=== PATIENT | female | born 2000 | race Caucasian/White ===

== ENCOUNTER → 2022-01-18 | Outpatient (CLI) | payer BC, SELFPAY | END | disposition home or self-care (01) | LOC: LABSPEC 11:06 | PROVIDERS: Visit Provider Obstetrics & Gynecology | DX: Z36.85 Encounter for antenatal screening for Streptococcus B (principal) | CPT/HCPCS: 87081 ==

== ENCOUNTER 2022-02-15 14:55 | Inpatient (IN) | payer BC, SELFPAY ==
[2022-02-15] VITALS (15 sets, daily range): BP systolic 121–217; BP diastolic 58–108; PULSE 85–113; TEMP 36.5–37.3; O2SAT 93–94; BMI 50.2
[2022-02-15] MEDS: Lactated Ringers 1,000 ML 50 ML IV ×2 (15:30→22:14)
[2022-02-15 15:49] LABS: Absolute Neutrophil Count 7.1 X10^3/uL (2.0-7.7); Basophil# 0.02 X10^3/uL; Basophil% 0.2 % (0-1); Eosinophil# 0.03 X10^3/uL; Eosinophils% 0.3 % (0-5); Lymphocyte % 23.5 % (19-41); Mean Corp Hgb Conc 34.2 g/dL (32-36); Mean Corpuscular Hgb 29.8 pg (27.0-32.0); Mean Corpuscular Volume 87.2 fL (81-99); Mean Platelet Vol. 10.3 fl (6.2-12.0); Monocyte# 0.59 X10^3/uL; Monocyte% 5.8 % (0-10); NRBC Flagged by Analyzer 0 % (0-5); Neutrophil # 7.11 X10^3/uL (2.7-7.7); Neutrophil % 69.7 % (47-70); Platelet Count 277 K/mm3 (150-450); RBC Distribution Width CV 14.3 % (11.6-14.6); RBC Distribution Width SD 45.7 fl (35.1-43.9); Red Blood Count 4.36 M/mm3 (4.2-5.4); White Blood Count 10.2 K/mm3 (4.4-11.0)
[2022-02-15 16:06] LABS: ALB/GLOB Ratio 0.6 RATIO (0.9-2.4); AST(SGOT) 17 U/L (15-37); Alanine Aminotransfer ALT/SGPT 25 U/L (13-56); Albumin, Serum 2.5 g/dL (3.2-5.0); Alkaline Phosphatase 173 U/L (45-117); Anion Gap 8 (5-15); BUN 8 mg/dL (7-18); BUN/Creat Ratio 11.2 RATIO (10-20); Calcium,Total 8.9 mg/dL (8.5-10.1); Chloride 110 mmol/L (98-107); Creatinine, Serum 0.72 mg/dL (0.55-1.02); EST Glomerular Filtration Rate 107 mL/min (>60); Est Glom Filt Rate - Afr Amer 129 mL/min (>60); Estimated Creatinine Clearance 131.41 ml/min; Globulin 4.5 g/dL (2.2-4.2); Glucose 123 mg/dL (74-106); Potassium 3.9 mmol/L (3.5-5.1); Sodium Level 137 mmol/L (136-145)
[2022-02-15] MEDS: LACTATED RINGERS 500 ML 999 ML IV ×2 (16:09→17:03)
[2022-02-15 16:42] LABS: Protein, Urine (Random) 10.5 mg/dL (<11.9); Protein:Creat Ratio 305 mg/g CRE (0-200)
[2022-02-15 17:20] LABS: LDH 202 U/L (84-246)
[2022-02-15] MEDS: Oxytocin 30 units/NS 500 ml 30 UNITS/500 ML IV.SOLN IV (17:48)
--- NOTE | 2022-02-15 18:00 | PCM.HP.BLA ---
History and Physical Date of Admission: 02/15/22 21-year-old at 40/6 weeks, JESSE 02/09/2022 by LMP, admitted for induction of labor. Denies headache, vision changes, chest pain or shortness of breath, nausea or vomiting, diarrhea constipation, fevers or chills. Denies regular contractions, leaking of fluid, vaginal bleeding. Reports movement. complicated by: Class III obesity, gestational hypertension. Growth on 01/11: 2835 g, 55th percentile EFW.. 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 Class III obesity Surgical history: 1. [place] teeth extraction Allergies: No known drug allergies Family history: Noncontributory Social history: Denies tobacco, alcohol, drug use Medications: vitamin Review of system: Negative otherwise stated above Physical exam: BP 127/75, pulse Heart rate 96, temperature 98.3 ?F, pulse ox 94% on room air General: Patient sitting at bedside in no acute distress HEENT: Normocephalic/atraumatic, PERRLA Cardiac: Regular rate and rhythm Lungs: Clear to auscultation bilaterally Abdomen: Soft, nontender, gravid, obese Extremities: Minimal edema Neurologic: Cranial nerves II through XII grossly intact, patellar reflex 2/4 bilaterally Musculoskeletal: Strength 5 out of 5 throughout all extremities Cervical exam: 3 cm/60/-3 heart rate: 150/moderate variability/+accel/no decel [place]: quiet panel O+ GBS negative on 01/18 HIV negative Hepatitis B/C negative Syphilis nonreactive Gonorrhea/chlamydia negative Labs today: CBC, CMP, LDH within normal limits. Mildly elevated urine protein creatinine ratio of 305 Assessment & Plan Assessment/Plan (1) Pre-eclampsia: PLAN: 21-year-old at 40/6 weeks, admitted for induction of labor for preeclampsia. Patient diagnosed with gestational hypertension in the office, protein creatinine ratio elevated. Blood pressures have been within normal limits here at this time. Patient asymptomatic and physical exam within normal limits. Complicated by class III obesity. ?Admit for induction of labor with Pitocin ?Routine orders (2) Encounter for induction of labor:
[2022-02-16] VITALS (57 sets, daily range): BP systolic 118–173; BP diastolic 55–99; PULSE 71–245; TEMP 36.4–37.4; O2SAT 82–99
[2022-02-16] MEDS: Ondansetron 4 MG/2 ML Vial IV ×5 (03:06→22:44)
[2022-02-16] MEDS: fentaNYL 100 MCG/2 ML Ampul IV ×4 (03:16→12:29)
--- NOTE | 2022-02-16 04:12 | PN.OBGYN_ITS ---
Subjective Subjective Patient up at bedside. Getting more uncomfortable with contractions. Objective Data Objective Data Vital Signs: Vital Signs Temp Pulse BP Pulse Ox 98.0 F 98 150/86 H 93 02/16/22 03:09 02/16/22 03:10 02/16/22 03:10 02/15/22 18:53 Weight: 158.757 kg Body Mass Index (BMI) 50.2 Intake & Output: Intake and Output for Last 24 Hours 02/14/22 02/15/22 02/16/22 23:59 23:59 23:59 Intake Total 1370.17 / 1370.17 52.14 / 52.14 Output Total 200 / 200 Balance 1170.17 / 1170.17 52.14 / 52.14 Lab / Micro Data Attestation: I reviewed the patient's lab results. Result Diagrams: 02/15/22 15:30 02/15/22 15:30 Labs: Laboratory Results - last 24 hr 02/15/22 15:30: WBC 10.2, RBC 4.36, Hgb 13.0, Hct 38.0, MCV 87.2, MCH 29.8, MCHC 34.2, RDW Std Deviation 45.7 H, RDW Coeff of Jamel 14.3, Plt Count 277, MPV 10.3, Immature Gran % (Auto) 0.500, Neut % (Auto) 69.7, Lymph % (Auto) 23.5, [place] % (Auto) 5.8, Eos % (Auto) 0.3, Baso % (Auto) 0.2, Absolute Neuts (auto) 7.1, Absolute Lymphs (auto) 2.40, Nucleated RBC % 0 02/15/22 15:30: Blood Type O POSITIVE, Antibody Screen NEGATIVE 02/15/22 15:30: Sodium 137, Potassium 3.9, Chloride 110 H, Carbon Dioxide 19.0 L , Anion Gap 8, BUN 8, Creatinine 0.72, Estim Creat Clear Calc 131.41, Est GFR (MDRD) Af Amer 129, Est GFR (MDRD) Non-Af 107, BUN/Creatinine Ratio 11.2, Glucose 123 H, Calcium 8.9, Total Bilirubin 0.30, AST 17, ALT 25, Alkaline Phosphatase 173 H, Total Protein 7.0, Albumin 2.5 L, Globulin 4.5 H, Albumin/Globulin Ratio 0.6 L 02/15/22 15:30: Lactate Dehydrogenase 202 02/15/22 15:55: U Random Total Protein 10.5, Urine Creatinine 34.40, Protein/Creatinin Ratio 305 H Micro: Microbiology 02/15/22 15:35 Nasal Secretion SARS-CoV-2 Antigen (Rapid) - Final Physical Exam Const alert and oriented x3 Resp normal respiratory effort GI Inspection: gravid Extremity no pedal edema NST FHR Rate Baby A Baseline: 145 Variability:: Moderate Accelerations:: 15 x 15 Decelerations:: None FHR Category:: Category I Assessment & Plan (1) Pre-eclampsia: PLAN: 41/0w. Continued induction of labor for preeclampsia without severe features. Blood pressures controlled. Continue induction of labor. Spontaneous rupture of membranes. Will consider Pitocin break later this morning if needed. (2) Encounter for induction of labor:
[2022-02-16] MEDS: Lactated Ringers 1,000 ML 200 ML IV ×2 (13:11→19:12)
--- NOTE | 2022-02-16 16:27 | PCM.PN.OB ---
Subjective Subjective Patient seen and examined. Breathing through contractions. Objective Data Objective Data Vital Signs: Vital Signs Temp Pulse BP Pulse Ox 98.7 F 90 144/82 H 96 02/16/22 14:53 02/16/22 16:26 02/16/22 16:26 02/16/22 16:26 Weight: 158.757 kg Body Mass Index (BMI) 50.2 Intake & Output: Intake and Output for Last 24 Hours 02/14/22 02/15/22 02/16/22 23:59 23:59 23:59 Intake Total 1370.17 / 1370.17 1564.97 / 1564.97 Output Total 200 / 200 200 / 200 Balance 1170.17 / 1170.17 1364.97 / 1364.97 Lab / Micro Data Result Diagrams: 02/15/22 15:30 02/15/22 15:30 Labs: Laboratory Results - last 24 hr 02/15/22 15:30: Blood Type O POSITIVE, Antibody Screen NEGATIVE 02/15/22 15:30: Lactate Dehydrogenase 202 02/15/22 15:55: U Random Total Protein 10.5, Urine Creatinine 34.40, Protein/Creatinin Ratio 305 H Micro: Microbiology 02/15/22 15:35 Nasal Secretion SARS-CoV-2 Antigen (Rapid) - Final Physical Exam Const alert and oriented x3 Resp normal respiratory effort GI Inspection: gravid Narrative: 6/80/+1 Extremity Extremity Narrative: minimal pedal edema NST FHR Rate Baby A Baseline: 140 Variability:: Moderate Accelerations:: 15 x 15 Decelerations:: None FHR Category:: Category I Assessment & Plan (1) Encounter for induction of labor: PLAN: Patient 6 cm dilated. Ruptured since approximately 0300. status reassuring, category 1 tracing. Patient exhausted from contractions. Discussed further supportive care for pain management. Patient would like epidural at this time. May need IUPC to enable further titration of contractions. Discussed with patient and patient showed device. Continue induction of labor with Pitocin. All questions answered. (2) Pre-eclampsia:
[2022-02-16] MEDS: LACTATED RINGERS 500 ML 999 ML IV (16:44)
[2022-02-16] MEDS: fentaNYL-bupivacaine (epidural) 100 ML BAG EPIDURAL ×2 (18:21→22:52)
[2022-02-16] MEDS: 0.9% Saline Lock 10 ML Syringe IV (22:44)
[2022-02-16] MEDS: Oxytocin 30 units/NS 500 ml 30 UNITS/500 ML IV.SOLN 334 UNITS IV (23:53)
[2022-02-17] VITALS (37 sets, daily range): BP systolic 104–182; BP diastolic 48–125; PULSE 94–154; RESP 16–22; TEMP 36.3–36.9; O2SAT 96–100
--- NOTE | 2022-02-17 00:10 | EX.PCM.OBRPT ---
Maternal Data Information Final JESSE: 02/09/22 Final JESSE Source: LMP Vaginal Delivery Operative Information Date of Procedure: 02/16/22 Pre-Operative Diagnosis: Caceres intrauterine , preeclampsia with severe features, meconium fluid Post-Operative Diagnosis: Caceres intrauterine , preeclampsia with severe features, meconium fluid Surgery / Procedure Performed: Spontaneous Vaginal Delivery Type of Anesthesia: Epidural Estimated Blood Loss: 600cc Findings Description of Procedure: Spontaneous vaginal delivery of a viable infant female. Nuchal cord x1, loose, reduced. Baby to mom. Cord clamped and cut. Baby to warmer for suctioning and stimulation with a waiting nursery staff. Second-degree laceration repaired in usual fashion, hemostatic. Cord avulsion from placenta. Manual extraction of placenta. Removal of membranes with ring forceps. Bimanual exam completed with removal of blood clot and any remaining tissue. Bedside ultrasound completed; noting thin endometrial lining, no blood flow. All placental tissue removed based on exam and ultrasound findings. Baby on mom's chest. Train Control Electronic Technician and respiratory present for meconium fluid. A Gender: Female (1 minute): 7 (5 minute): 8
[2022-02-17] MEDS: LACTATED RINGERS 500 ML 999 ML IV (00:20)
[2022-02-17 05:10] LABS: Hematocrit 32.1 % (37-47); Mean Corp Hgb Conc 34.3 g/dL (32-36); Mean Corpuscular Hgb 29.8 pg (27.0-32.0); Platelet Count 290 K/mm3 (150-450); RBC Distribution Width CV 14.3 % (11.6-14.6); RBC Distribution Width SD 45.1 fl (35.1-43.9); Red Blood Count 3.69 M/mm3 (4.2-5.4); White Blood Count 15.9 K/mm3 (4.4-11.0)
[2022-02-17 06:06] LABS: ALB/GLOB Ratio 0.6 RATIO (0.9-2.4); AST(SGOT) 27 U/L (15-37); Alanine Aminotransfer ALT/SGPT 33 U/L (13-56); Albumin, Serum 2.2 g/dL (3.2-5.0); Alkaline Phosphatase 140 U/L (45-117); Anion Gap 7 (5-15); BUN 7 mg/dL (7-18); Calcium,Total 8.4 mg/dL (8.5-10.1); Chloride 107 mmol/L (98-107); EST Glomerular Filtration Rate 110 mL/min (>60); Est Glom Filt Rate - Afr Amer 133 mL/min (>60); Estimated Creatinine Clearance 135.17 ml/min; Globulin 3.6 g/dL (2.2-4.2); Glucose 110 mg/dL (74-106); Potassium 3.8 mmol/L (3.5-5.1); Protein, Total 5.8 g/dL (6.4-8.2); Sodium Level 136 mmol/L (136-145)
[2022-02-17] MEDS: Benzocaine/Lanolin/Aloe Vera 1 SPRAY EACH TOPICAL (08:35)
--- NOTE | 2022-02-17 09:31 | PCM.PN.OB ---
Subjective Subjective day 1. Denies headache, vision changes, chest pain or shortness of breath, right upper quadrant pain. Sore, medication helping. Lochia minimal. Breast-feeding going well. Objective Data Objective Data Vital Signs: Vital Signs Temp Pulse Resp BP Pulse Ox O2 Del Method 97.4 F L 100 16 111/52 L 98 Room Air 02/17/22 07:43 02/17/22 07:43 02/17/22 07:43 02/17/22 07:43 02/17/22 02:30 02/17/22 04:11 Oxygen Delivery Method Room Air Weight: 158.757 kg Body Mass Index (BMI) 50.2 Intake & Output: Intake and Output for Last 24 Hours 02/15/22 02/16/22 02/17/22 23:59 23:59 23:59 Intake Total 1370.17 / 1370.17 4092.33 / 4092.33 1000 / 1000 Output Total 200 / 200 800 / 800 1600 / 1600 Balance 1170.17 / 1170.17 3292.33 / 3292.33 -600 / -600 Lab / Micro Data Attestation: I reviewed the patient's lab results. Result Diagrams: 02/17/22 05:00 02/17/22 05:00 Labs: Laboratory Results - last 24 hr 02/17/22 05:00: Sodium 136, Potassium 3.8, Chloride 107, Carbon Dioxide 22.0, Anion Gap 7, BUN 7, Creatinine 0.70, Estim Creat Clear Calc 135.17, Est GFR (MDRD) Af Amer 133, Est GFR (MDRD) Non-Af 110, BUN/Creatinine Ratio 10.0, Glucose 110 H, Calcium 8.4 L, Total Bilirubin 0.30, AST 27, ALT 33, Alkaline Phosphatase 140 H, Total Protein 5.8 L, Albumin 2.2 L, Globulin 3.6, Albumin/Globulin Ratio 0.6 L 02/17/22 05:00: WBC 15.9 H, RBC 3.69 L, Hgb 11.0 L, Hct 32.1 L, MCV 87.0, MCH 29.8, MCHC 34.3, RDW Std Deviation 45.1 H, RDW Coeff of Jamel 14.3, Plt Count 290, MPV 10.0 Micro: Microbiology 02/15/22 15:35 Nasal Secretion SARS-CoV-2 Antigen (Rapid) - Final Physical Exam Const alert, oriented x3 and no apparent distress HEENT normocephalic Head and Scalp: atraumatic Neck full ROM Resp normal respiratory effort Cardio regular rate GI normal to inspection, nondistended, normoactive bowel sounds GI Narrative: Uterus 2 cm below umbilicus Back/Spine normal ROM Extremity normal to inspection Extremity Narrative: Minimal pedal edema Neuro no focal motor deficits, no sensory deficits noted and deep tendon reflexes 2+ bilaterally Psych mental status grossly normal and affect normal Assessment & Plan (1) Pre-eclampsia: PLAN: day 1 status post . Complicated by preeclampsia based on elevated blood pressures with proteinuria. Blood pressure since delivery stable. Tachycardia resolved. Asymptomatic. Labs stable. Acute blood loss anemia secondary to delivery, iron supplement on home-going. Discharge home day 3. (2) Acute blood loss anemia: (3) Vaginal delivery:
[2022-02-17] MEDS: Senna/Docusate Sodium 1 Tablet PO (12:23)
[2022-02-17] MEDS: Ibuprofen 600 MG Tablet PO (12:24)
[2022-02-18 02:21] VITALS: BP 106/43; PULSE 84; RESP 16; TEMP 36.3
--- NOTE | 2022-02-18 06:47 | PCM.PN.OB ---
Subjective Subjective No overnight complaints. Denies headache, visual changes, chest pain, shortness of breath, nausea vomit, right upper quadrant pain. Objective Data Objective Data Vital Signs: Vital Signs Temp Pulse Resp BP Pulse Ox O2 Del Method 97.3 F L 84 16 106/43 L 98 Room Air 02/18/22 02:21 02/18/22 02:21 02/18/22 02:21 02/18/22 02:21 02/17/22 02:30 02/18/22 02:21 Oxygen Delivery Method Room Air Weight: 350 lb Body Mass Index (BMI) 50.2 Intake & Output: Intake and Output for Last 24 Hours 02/16/22 02/17/22 02/18/22 23:59 23:59 23:59 Intake Total 4092.33 / 4092.33 1000 / 1000 Output Total 800 / 800 1600 / 1600 Balance 3292.33 / 3292.33 -600 / -600 Lab / Micro Data Result Diagrams: 02/17/22 05:00 02/17/22 05:00 Micro: Microbiology 02/15/22 15:35 Nasal Secretion SARS-CoV-2 Antigen (Rapid) - Final Physical Exam Const alert, oriented x3, no apparent distress, average body habitus, healthy appearing and well nourished HEENT normocephalic and moist oral mucous membranes Eyes PERRL Neck full ROM Resp normal respiratory effort, no retractions and no use of accessory muscles GI GI Narrative: Soft, nontender, uterus firm and below umbilicus Neuro moves all extremities and no focal motor deficits Psych mental status grossly normal, affect normal, speech normal and activity/motor behavior normal Assessment & Plan (1) Vaginal delivery: PLAN: day 2. Breast-feeding. Preeclampsia without severe features, asymptomatic and blood pressures well controlled on no medication. Continue to monitor and likely discharge home tomorrow
[2022-02-18 07:40] VITALS: BP 125/79; PULSE 91; RESP 18; TEMP 36.4; O2SAT 97
[2022-02-18 12:20] VITALS: BP 133/83; PULSE 95; RESP 18; TEMP 36.6; O2SAT 97
[2022-02-18 16:48] VITALS: BP 135/77; BP 151/81; PULSE 100; RESP 18; TEMP 36.3; O2SAT 97
[2022-02-18 22:00] VITALS: BP 146/82; PULSE 93; RESP 16; TEMP 36.6; O2SAT 96
[2022-02-18] MEDS: Senna/Docusate Sodium 1 Tablet PO (22:45)
[2022-02-19 01:00] VITALS: BP 117/52; PULSE 96; RESP 18; TEMP 36.4; O2SAT 97
[2022-02-19 04:57] VITALS: BP 130/75; PULSE 90; RESP 18; TEMP 36.4; O2SAT 97
--- NOTE | 2022-02-19 05:18 | PCM.PN.OB ---
Subjective Subjective Feeling well. Denies headache, vision changes, chest pain or shortness of breath, nausea or vomiting, right upper quadrant pain. Lochia minimal. Reports some skin numbness right lateral thigh that is improving from yesterday. Objective Data Objective Data Vital Signs: Vital Signs Temp Pulse Resp BP Pulse Ox O2 Del Method 97.5 F L 90 18 130/75 H 97 Room Air 02/19/22 04:57 02/19/22 04:57 02/19/22 04:57 02/19/22 04:57 02/19/22 04:57 02/19/22 04:57 Oxygen Delivery Method Room Air Weight: 158.757 kg Body Mass Index (BMI) 50.2 Intake & Output: Intake and Output for Last 24 Hours 02/17/22 02/18/22 02/19/22 23:59 23:59 23:59 Intake Total 1000 / 1000 Output Total 1600 / 1600 Balance -600 / -600 Lab / Micro Data Attestation: I reviewed the patient's lab results. Result Diagrams: 02/17/22 05:00 02/17/22 05:00 Micro: Microbiology 02/15/22 15:35 Nasal Secretion SARS-CoV-2 Antigen (Rapid) - Final Physical Exam Const alert, oriented x3 and no apparent distress HEENT normocephalic Head and Scalp: atraumatic Neck full ROM Resp normal respiratory effort Cardio regular rate GI normal to inspection, nondistended, normoactive bowel sounds GI Narrative: Uterus 2 cm below umbilicus Back/Spine normal ROM Extremity normal to inspection Extremity Narrative: Minimal pedal edema Neuro no focal motor deficits, no sensory deficits noted and deep tendon reflexes 2+ bilaterally Psych mental status grossly normal and affect normal Assessment & Plan (1) Vaginal delivery: PLAN: day 3. Breast-feeding. Preeclampsia without severe features, asymptomatic and blood pressures well controlled on no medication. Right lateral thigh numbness likely secondary to position with pushing. Patient able to ambulate without difficulty or issue, strength in lower extremities 5 out of 5. Numbness only affecting skin. Patient states it is improving. We will closely monitor. If needed will plan for outpatient physical therapy. Blood pressures well controlled. Asymptomatic. Discharge home today. With follow-up next week. Patient to call or return for headache that is unresolved with Motrin/Tylenol, visual disturbances, right upper quadrant pain, chest pain or shortness of breath, nausea or vomiting.
--- NOTE | 2022-02-19 05:21 | DCINST_ITS ---
Discharge Instructions Diet Discharge Diet: No restrictions Activity Discharge Activity: Return to Normal Activity and May Shower May resume sexual activity in: 4-6 weeks Weight Bearing Status: Weight bearing as tolerated Lifting Restrictions: No greater than 25 pounds Dressing / Incision Call your doctor if you observe: Fever of 101 or Higher, Change in Color, Inability to urinate, Using more than 1 pad per hour, Shortness of breath, Dizziness, Swelling in the ankles, Chest pain and Calf discomfort Follow Up Care Please Follow Up With: Sonali Barrett DO When: 1 week BP check and 6-week visit Test Results: Test results from this visit will be discussed in further detail at your follow- up appointment, if applicable. Discharge Plan Admission Admit Date/Time: 02/15/22 14:55 Primary Reason for Your Visit: Vaginal delivery, pre-eclampsia Attending Provider: Sonali Barrett Primary Care Provider: Care Physician,Milagros Primary Discharge Orders/Prescriptions Prescriptions: No Action 1 mg Tablet 1 tab PO DAILY Referrals / Follow Up: Care Physician,No Primary [Primary Care Provider] - Disposition Disposition (needs filled in before D/C Order can be placed): Home, Self Care
--- NOTE | 2022-02-19 05:23 | DS.PCM_ITS ---
Providers Date of Admission: 02/15/22 Primary Care Physician: No Primary Care Phys Reason For Visit: INDUCTION OF LABOR Diagnosis Discharge Diagnosis (1) Vaginal delivery: Status: Acute Code(s): O80 - Encounter for full-term uncomplicated delivery Plan: day 3. Breast-feeding. Preeclampsia without severe features, asymptomatic and blood pressures well controlled on no medication. Right lateral thigh numbness likely secondary to position with pushing. Patient able to ambulate without difficulty or issue, strength in lower extremities 5 out of 5. Numbness only affecting skin. Patient states it is improving. We will closely monitor. If needed will plan for outpatient physical therapy. Blood pressures well controlled. Asymptomatic. Discharge home today. With follow-up next week. Patient to call or return for headache that is unresolved with Motrin/Tylenol, visual disturbances, right upper quadrant pain, chest pain or shortness of breath, nausea or vomiting. Medications at Discharge Home Medications [id number] 1 mg tablet 1 tab PO DAILY 02/15/22 Hospital Course Operations None Procedures - () Summary of Care Provided Hospital Course: Patient admitted on 02/15/2022 for induction of labor for preeclampsia without severe features. Patient progressed throughout induction and delivered on 02/16/2022. Due to preeclampsia patient was monitored for 3 days with blood pressures within normal limits. Patient continued to be asymptomatic. Breast-feeding. Skin numbness right lateral thigh improving. Likely secondary to pushing and delivery positioning. Patient did have sciatic pain on this side prior to delivery as well. Patient stable for discharge home on 02/19/2022. With follow-up in 1 week for blood pressure check. Physical Exam Const alert, oriented x3 and no apparent distress HEENT normocephalic Head and Scalp: atraumatic Neck full ROM Resp normal respiratory effort Cardio regular rate GI normal to inspection, nondistended, normoactive bowel sounds GI Narrative: Uterus 2 cm below umbilicus Back/Spine normal ROM Extremity normal to inspection Extremity Narrative: Minimal pedal edema Neuro no focal motor deficits, no sensory deficits noted and deep tendon reflexes 2+ bilaterally Psych mental status grossly normal and affect normal Weight / BMI Weight Weight: 158.757 kg Body Mass Index (BMI) 50.2 ABG / Lab / Microbiology Data Result Diagrams: 02/17/22 05:00 02/17/22 05:00 Microbiology: Microbiology 02/15/22 15:35 Nasal Secretion SARS-CoV-2 Antigen (Rapid) - Final D/C Instructions Discharge Diet: No restrictions May resume sexual activity in: 4-6 weeks Weight Bearing Status: Weight bearing as tolerated Call your doctor if you observe: Fever of 101 or Higher, Change in Color, [place] bility to urinate, Using more than 1 pad per hour, Shortness of breath, Dizziness, Swelling in the ankles, Chest pain and Calf discomfort Please Follow Up With: Sonali Barrett DO When: 1 week BP check and 6-week visit Meaningful Use Info Meaningful Use Diagnoses (Choose all that apply): None applicable Discharge Plan Admission Admit Date/Time: 02/15/22 14:55 Primary Reason for Your Visit: Vaginal delivery, pre-eclampsia Attending Provider: Sonali Barrett Primary Care Provider: Care Physician,Milagros Primary Discharge Orders/Prescriptions Prescriptions: No Action 1 mg Tablet 1 tab PO DAILY Referrals / Follow Up: Care Physician,No Primary [Primary Care Provider] - Disposition Disposition (needs filled in before D/C Order can be placed): Home, Self Care
[2022-02-19 08:50] VITALS: BP 130/78; PULSE 104; RESP 16; TEMP 36.5; O2SAT 96
[2022-02-19 09:20] VITALS: PULSE 104
[2022-02-19 11:50] VITALS: BP 130/78; PULSE 104; RESP 16; TEMP 36.5; O2SAT 96
== END 2022-02-19 13:25 | disposition home or self-care (01) | DRG 806 ==
PROVIDERS: Admitting Provider Student in an Organized Health Care Education/Training Program; Visit Provider Student in an Organized Health Care Education/Training Program
DX: O14.04 Mild to moderate pre-eclampsia, complicating childbirth (principal); Z37.0 Single live birth; D62 Acute posthemorrhagic anemia; E66.01 Morbid (severe) obesity due to excess calories; O99.214 Obesity complicating childbirth; O77.0 Labor and delivery complicated by meconium in amniotic fluid; O70.1 Second degree perineal laceration during delivery; O69.81X0 Labor and delivery complicated by cord around neck, without compression, not applicable or unspecified; O99.893 Other specified diseases and conditions complicating puerperium; R00.0 Tachycardia, unspecified; O90.81 Anemia of the puerperium; Z3A.40 40 weeks gestation of pregnancy
CPT/HCPCS: 59025; 59050; 80053; 82570; 83615; 84156; 85025; 85027; 86850; 86900; 86901; 87426; 99218; J7120; A4216; G0378; J2405

== ENCOUNTER → 2022-04-17 | Outpatient (CLI) | payer BC, SELFPAY ==
[2022-04-20 09:07] LABS: Chlamydia By Nucleic Acid AMP Negative (Negative)
[2022-04-21 09:35] LABS: Gonococcus By Nucleic Acid AMP Negative (Negative)
== END | disposition home or self-care (01) ==
LOC: LABSPEC 15:28
PROVIDERS: Visit Provider Student in an Organized Health Care Education/Training Program
DX: Z11.3 Encounter for screening for infections with a predominantly sexual mode of transmission (principal)
CPT/HCPCS: 87491; 87591

== ENCOUNTER → 2022-10-25 | Outpatient (CLI) | payer BC, SELFPAY ==
[2022-11-01 20:13] LABS: HPV Reflexed? NOT INDICATED
== END | disposition home or self-care (01) ==
LOC: LABSPEC 14:41
PROVIDERS: Visit Provider Student in an Organized Health Care Education/Training Program
DX: Z12.4 Encounter for screening for malignant neoplasm of cervix (principal)
CPT/HCPCS: 88175; G0145

== ENCOUNTER → 2024-03-19 | Outpatient (CLI) | payer BC, SELFPAY ==
[2024-03-19 12:31] LABS: Absolute Lymphocyte Count 3.25 X10^3/uL (0.83-4.51); Absolute Neutrophil Count 3.8 X10^3/uL (2.0-7.7); Basophil# 0.02 X10^3/uL; Basophil% 0.3 % (0-1); Eosinophil# 0.12 X10^3/uL; Eosinophils% 1.6 % (0-5); Hematocrit 43.7 % (37-47); Lymphocyte # 3.25 X10^3/ul (0.83-4.51); Lymphocyte % 42.5 % (19-41); Mean Corpuscular Volume 84.2 fL (81-99); Monocyte# 0.42 X10^3/uL; Monocyte% 5.5 % (0-10); NRBC Flagged by Analyzer 0 % (0-5); Neutrophil # 3.81 X10^3/uL (2.7-7.7); Neutrophil % 49.8 % (47-70); Platelet Count 341 K/mm3 (150-450); RBC Distribution Width CV 14.3 % (11.6-14.6); RBC Distribution Width SD 43.8 fl (35.1-43.9); Red Blood Count 5.19 M/mm3 (4.2-5.4); White Blood Count 7.6 K/mm3 (4.4-11.0)
[2024-03-19 12:49] LABS: ALB/GLOB Ratio 0.9 RATIO (0.9-2.4); AST(SGOT) 19 U/L (15-37); Alanine Aminotransfer ALT/SGPT 39 U/L (13-56); Albumin, Serum 3.6 g/dL (3.2-5.0); Alkaline Phosphatase 101 U/L (45-117); Anion Gap 3 (5-15); BUN 11 mg/dL (7-18); BUN/Creat Ratio 15.9 RATIO (10-20); Calcium,Total 9.2 mg/dL (8.5-10.1); Chloride 108 mmol/L (98-107); Cholesterol 178 mg/dL (200); Creatinine, Serum 0.69 mg/dL (0.55-1.02); EST Glomerular Filtration Rate 109 mL/min (>60); Est Glom Filt Rate - Afr Amer 132 mL/min (>60); Globulin 4.2 g/dL (2.2-4.2); Glucose 94 mg/dL (74-106); High Density Lipoprotein 39 mg/dL; Potassium 3.8 mmol/L (3.5-5.1); Protein, Total 7.8 g/dL (6.4-8.2); Sodium Level 139 mmol/L (136-145); Triglycerides 93 mg/dL; Very Low Density Lipoprotein 19 mg/dL (5-40)
== END | disposition home or self-care (01) ==
LOC: BIMLAB 10:57
PROVIDERS: PCP Internal Medicine; Visit Provider Internal Medicine
DX: Z00.00 Encounter for general adult medical examination without abnormal findings (principal)
CPT/HCPCS: 36415; 80053; 80061; 85025